=== PATIENT | male | born 1980 | race Caucasian/White ===

== ENCOUNTER 2020-10-20 00:42 | Emergency (ER) | payer OTHER ==
[2020-10-20] MEDS ORDERED: Lidocaine 1% (PF) 30 ML VIAL ONE (02:23)
== END 2020-10-20 03:22 | disposition home or self-care (01) ==
LOC: ERS 00:42
DX: S61.512A Laceration without foreign body of left wrist, initial encounter (principal); S61.511A Laceration without foreign body of right wrist, initial encounter; E11.9 Type 2 diabetes mellitus without complications; Z79.84 Long term (current) use of oral hypoglycemic drugs; Z79.899 Other long term (current) drug therapy; W01.0XXA Fall on same level from slipping, tripping and stumbling without subsequent striking against object, initial encounter
CPT/HCPCS: 12001; J2001